=== PATIENT | male | born 1995 | race Caucasian/White ===

== ENCOUNTER 2024-09-19 17:21 | Emergency (ER) | payer SELFPAY ==
--- NOTE | ~2024-09-19 | XR_ITS ---
EXAM: XR finger 2nd LT min 2V DATE: 09/19/2024 17:45 HISTORY: infection . COMPARISON: None available. FINDINGS: Normal mineralization. No fracture or dislocation. No lytic or blastic lesion. Joint space s are maintained. No erosion or periosteal change. Soft tissue swelling over the distal second digit. Punctate radiopacity over the palmar thenar soft tissues. IMPRESSION: No radiographic evidence of osteomyelitis. No subcutaneous gas or foreign body in the second digit. Punctate, likely palmar thenar metallic foreign body, presumably chronic and unrelated to the process in the second digit. Reviewed, dictated and finalized at location [facility]. GER EMPLOYEE RELATIONS IMPRESSION: No radiographic evidence of osteomyelitis. No subcutaneous gas or foreign body in the second digit. Punctate, likely palmar thenar metallic foreign body, presumably chronic and un related to the process in the second digit.
[2024-09-19 17:33] VITALS: BP 158/100; PULSE 83; RESP 19; TEMP 36.7; O2SAT 98
[2024-09-19] MEDS: oxyCODONE/ACETAMINOPHEN (*CRX) 5-325 MG TABLET 1 TABLET PO ×2 (19:32→21:01)
[2024-09-19] MEDS: TETANUS,DIPHTHERIA,AC PERTUSSIS ADULT (0.5 ML) BOOSTRIX IM (19:32)
[2024-09-19 19:56] LABS: Anion Gap 10 mmol/L (4-12); Blood Urea Nitrogen 11 mg/dL (9-20); Calcium 9.7 mg/dL (8.4-10.2); Carbon Dioxide 32 mmol/L (22-30); Chloride 94 mmol/L (98-107); Estimated CRCL calculation 123 ml/min; Estimated Glomerular Filt Rate > 60; Glucose 98 mg/dL (65-110); Potassium 3.7 mmol/L (3.4-5.0); Sodium 136 mmol/L (137-145)
--- NOTE | 2024-09-19 20:42 | ED_ITS ---
HPI - Wound/Laceration General Chief Complaint: Wound/Laceration Stated Complaint: left 2nd finger injury Time Seen by Provider: 09/19/24 18:53 Source: patient Mode of arrival: ambulatory Limitations: no limitations History of Present Illness HPI narrative: This is a 29-year-old male, with no significant past medical history, presenting to the emergency department complaining of painful swelling and drainage from the left index finger for the past 2 days. The patient states he accidentally stabbed himself with a medical [place] cure 2 days ago. He complains of 5/10 dull pain. He denies injury elsewhere. He is not sure of his last tetanus vaccination. He has no other complaints at this time. Related Data Allergies Allergy/AdvReac Type Severity Reaction Status Date / Time No Known Allergies Allergy Unverified 09/19/24 17:25 Review of Systems 2 Review of Systems: All systems reviewed & are unremarkable except as noted in HPI and below PMFSH Past Medical History Medical History No significant past medical history Surgical History Surgical History No significant past surgical history Social History Social History Smoking status: Never smoker Alcohol intake: current Substance use: never Exam 2 Narrative: GENERAL: Well-developed, well-nourished, and in no acute distress. HEAD: Normocephalic, atraumatic. EYES: PERRLA and EOMI. CHEST: Clear to auscultation. No respiratory distress. No wheezes rales or rhonchi HEART: Regular rate and rhythm. No murmur heard. Normal peripheral pulses. EXTREMITIES: there is purulent drainage and gangrenous appearing tissue noted at the distal, palmar aspect of the left index finger with associated erythema noted dorsal aspect of the finger. There is no noted crepitus. Range of motion of the finger is intact. Normal range of motion of all other extremities. No edema. SKIN: Warm, dry, no rash. NEURO: Alert and oriented x3. No focal deficit. Moving all 4 limbs spontaneously PSYCH: Normal mood and affect. Course Course Emergency Course: 20:49 - Exam consistent with felon. X-ray not concerning for retained foreign object, fracture or obvious changes concerning for osteomyelitis. The patient was given tetanus vaccination. The finger was incised and drained. Please see procedure note. Will discharge with oral antibiotics with concern for associated cellulitis. I discussed the findings and recommendations with the patient. Discussed return and emergency precautions including signs/symptoms of antibiotic failure and neurovascular compromise. The patient voiced understanding and agreement with the plan. All questions answered to his satisfaction. Vital Signs Vital signs: Vital Signs Temperature 98.1 F 09/19/24 17:33 Pulse Rate 83 09/19/24 17:33 Respiratory Rate 19 09/19/24 17:33 Blood Pressure 158/100 H 09/19/24 17:33 Pulse Oximetry 98 09/19/24 17:33 Temperature 98.1 F 09/19/24 17:33 Pulse Rate 83 09/19/24 17:33 Respiratory Rate 19 09/19/24 17:33 Blood Pressure 158/100 H 09/19/24 17:33 Pulse Oximetry 98 09/19/24 17:33 Procedures Abscess I/D hand: Date of Incision: 09/19/24 Time of Incision: 20:35 Side (if applicable): left Sedation/analgesia: none Local Anesthetic: lidocaine 1% Amount of anesthesia used (mL): 8 Technique: incised with #11 blade ( Made at the ulnar aspect the distal left index finger) Amount of fluid expressed (mL): 3 Irrigation: Yes Packing used?: none I&D Results: Pus and Blood Complications: other (None) Abcess I&D Additional Comments: Felon of the left index finger incised and drained. Bleeding was controlled with a ring tourniquet applied to the left index finger. MDM - Wound/Laceration MDM Narrative Medical decision making narrative: Plan: Imaging, pain controlled on a tetanus vaccination, incision and drainage Differential Diagnosis Differential diagnosis: Likely abscess and other (felon, osteomyelitis, cellulitis, retained foreign object, other) Lab Data 09/19/24 19:40 Labs: Lab Results 09/19/24 Range/Units 19:40 Sodium 136 L (137-145) mmol/L Potassium 3.7 (3.4-5.0) mmol/L Chloride 94 L (98-107) mmol/L Carbon Dioxide 32 H (22-30) mmol/L Anion Gap 10 (4-12) mmol/L BUN 11 (9-20) mg/dL Creatinine 0.88 (0.7-1.3) mg/dL Estim Creat Clear Calc 123 ml/min Estimated GFR > 60 (59 - ) Glucose 98 (65-110) mg/dL Calcium 9.7 (8.4-10.2) mg/dL Discharge Plan Discharge Clinical Impression: Felon of finger of left hand, Finger pain, left Patient Disposition: Home, Self-Care Condition: Stable Instructions: Antibiotic Form, Abscess (ED) Additional Instructions: You were seen in the emergency department. X-rays are not concerning for infection of the bone or other fracture. Your labs are not concerning for kidney injury. The abscess of the finger was trained in your given a tetanus vaccination. I recommend a course of oral antibiotics, pain medications and follow-up with a primary care doctor in 3-5 days for wound re-evaluation. If you develop rapidly spreading redness with severe pain, fevers, vomiting, or if you have other emergent concerns for life, limb, or eyesight, return to the emergency department. Patient Language: Mongolian Prescriptions: New sulfamethoxazole-trimethoprim 800-160 mg tablet 1 tablet PO Q12H 7 Days Qty: 14 0RF hydrocodone-acetaminophen 5-325 mg tablet 1 tablet PO Q12H PRN (Reason: pain, severe) 4 Days Qty: 8 0RF Follow-up/Referrals: PHYSICIAN,EMAIL PRODUCTION SPECIALIST [Primary Care Provider] - Estephania Reese DO [Physician] - 09/22/24 Time of Disposition: 20:47
[2024-09-19] MEDS: SULFAMETHOXAZOLE/TRIMETHOPRIM 800/160 MG DS TABLET 1 TAB PO (21:01)
--- OUTSIDE RECORDS SUMMARY | 2024-09-24 09:20 | XMS_ITS | Clinical Summary ---
Author Organization [facility] Address [address] [place] [address] Care Team Providers Care Screw Down Name Role Phone Chepe Guardado MD Primary Care Provider [phone] Allergies No known active allergies Medications No known medications Active Problems Patient Care Coordination No te Formatting of this note migh t be different from the original. AWV 03/20/2016, 01/02/2018 Problem Noted Date Diagnosed Date Tobacco use 04/12/2014 Anxiety state 07/10/2011 Insomnia 07/10/2011 Allergic rhinitis 07/10/2011 Obesity 07/10/2011 Resolved Problems Problem Noted Date Diagnosed Date Resolved Date Abdominal pain, generalized 04/02/2012 03/20/2016 Overview (04/02/2012): 04/02/12 spoke with grandmother->sxs reportedly improved after laxative use Elevated blood pressure (not hypertension) 07/10/2011 04/12/2014 Family History Relation Name Status Comments Father Alive Mother Alive Social History Tobacco Use Types Packs/Day Years Used Date Smoking Tobacco: Every Day Cigarettes 1 1 Smokeless Tobacco: Never Tobacco Cessation:Counseling Given: No Alcohol Use Standard Drinks/Week Comments No 0 (1 standard drink = 0.6 oz pur e alcohol) Sex and Gender Information Value Date Recorded Sex Assigned at Not on file 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 Gender Identity Not on file Sexual Orientation Not on file Last Filed Vital Signs Vital Sign Reading Time Taken Comments Blood Pressure 130/88 01/02/2018 10:26 AM CDT Pulse - - Temperature 36.7 ??C (98.1 ??F) 04/12/2014 12:17 PM C DT Respiratory Rate - - Oxygen Saturation - - Inhaled Oxygen Concentration - - Weight 100.2 kg (221 lb) 01/02/2018 10:26 AM CDT Height 188 cm (6' 2 ) 01/02/2018 10:26 AM CDT Body Mass Index 28.37 01/02/2018 10:26 AM CDT Plan of Treatment Health Maintenance Due Date Last Done Comments DTAP/TDAP/TD VACCINES (1 - Tdap) 2014 HEPATITIS B VACCINES (1 of 3 - 19+ 3-dose series) 2014 INFLUENZA VACCINE (#1) 2024 HPV VACCINES Aged Out No longer eligi ble based on patient's age to complete this topic Insurance Care Teams Screw Down Relationship Specialty [place] [id number] [address] PCP - General Internal Medicine 07/10/11
== END 2024-09-19 21:05 | disposition home or self-care (01) ==
PROVIDERS: Emergency Provider Preventive Medicine Aerospace Medicine
DX: L03.012 Cellulitis of left finger (principal); Z23 Encounter for immunization
CPT/HCPCS: 26010; 36415; 73140; 80048; 90471; 90715; 99283; A9270

== ENCOUNTER 2024-09-22 16:32 | Emergency (ER) | payer SELFPAY ==
--- NOTE | ~2024-09-22 | XR_ITS ---
HISTORY: infection 2ND DIGIT COMPARISON: 09/19/2024 TECHNIQUE: 3 views of the left second digit were performed FINDINGS: No acute fracture. Interval development of multiple punctate foci of air within the soft tissues of the distal margin of the left second digit, an interval change from prior. Joint spaces are preserved and alignment is normal. Soft tissues are without foreign body or significant calcification. Normal mineralization. IMPRESSION: Gas within the soft tissues overlying the distal phalanx of the second digit. No bony abnormality. Reviewed, dictated and finalized at location [facility]. NARY CARE UNIT NURSE IMPRESSION: Gas within the soft tissues overlying the distal phalanx of the se cond digit. No bony abnormality.
[2024-09-22 16:38] VITALS: BP 150/112; PULSE 84; RESP 20; TEMP 36.6; O2SAT 99
--- NOTE | 2024-09-22 17:42 | ED.WOUNDLAC ---
HPI - Wound/Laceration General Chief Complaint: Wound/Laceration <Caitie Brown PA-C - Last Filed: 09/22/24 21:32> Stated Complaint: finger wound <TORY Maurer Last Filed: 09/22/24 21:32> Time Seen by Provider: 09/22/24 17:15 <TORY Maurer Last Filed: 09/22/24 21:32> Source: patient <TORY Maurer Last Filed: 09/22/24 21:32> Mode of arrival: ambulatory <TORY Maurer Last Filed: 09/22/24 21:32> Limitations: no limitations <TORY Maurer Last Filed: 09/22/24 21:32> History of Present Illness HPI narrative: This is a 29 year old male that presents to the ER for wound to the left 2nd finger. Reports he accidentally stabbed his finger with a skewer for kabobs. He was seen in the ER here and had a wound to the end of the finger incised and drained. He was not able to poultry picker his antibiotics till today. His finger has continued to get more swollen, with foul-smelling drainage. Denies fevers. <Caitie Brown PA-C - Last Filed: 09/22/24 21:32> Related Data Allergies/Adverse Reactions: Allergies Allergy/AdvReac Type Severity Reaction Status Date / Time No Known Allergies Allergy Verified 09/22/24 18:37 <TORY Maurer Last Filed: 09/22/24 21:32> Review of Systems Review of Systems: CONSTITUTIONAL: Denies fever SKIN: Reports redness, drainage MUSCULOSKELETAL: Reports joint pain, and myalgia. NEUROLOGIC: Denies numbness <TORY Maurer Last Filed: 09/22/24 21:32> All systems reviewed & are unremarkable except as noted in HPI and below <TORY Maurer Last Filed: 09/22/24 21:32> [facility] Past Medical History Medical History: Medical History No significant past medical history <Caitie Brown PA-C - Last Filed: 09/22/24 21:32> Surgical History Surgical History: Surgical History No significant past surgical history <Caitie Brown PA-C - Last Filed: 09/22/24 21:32> Social History Social History: Social History Smoking status: Never smoker Alcohol intake: current Substance use: never <Caitie Brown PA-C - Last Filed: 09/22/24 21:32> Exam Narrative: GENERAL: Well-appearing, well-nourished, and in no acute distress. HEAD: Normocephalic, atraumatic. EYES: EOMI. EXTREMITIES: Markedly decreased ROM in the left 2nd finger DIP joint with redness and swelling. Purulent drainage from a large wound at the tip of the finger with area of necrosis SKIN: Warm, dry, no rash. NEURO: No focal deficits. Alert and oriented x3. PSYCH: Normal mood and affect <Caitie Brown PA-C - Last Filed: 09/22/24 21:32> Course Course Emergency Course: Patient was updated on his workup and recommendation for transfer due to not having availability of Hand surgery for evaluation here <Caitie Brown PA-C - Last Filed: 09/22/24 21:32> ROLLOFF TRUCK DRIVER/PA Physician Supervision For this patient encounter, I reviewed the ROLLOFF TRUCK DRIVER or PA documentation, treatment plan, and medical decision making and had [id number] time with this patient. I performed all aspects of the MDM as documented. <Vandana Mckinney MD - Last Filed: 09/23/24 02:16> Consultations Consultation #1: Spoke with Dr. Durbin, plastic surgery with [facility], recommends transfer to [place] and they can send a hand surgeon there for evaluation as [facility] is on time critical <Caitie Brown PA-C - Last Filed: 09/22/24 21:32> Date: 09/22/24 <Caitie Brown PA-C - Last Filed: 09/22/24 21:32> Consultation #2: Dr. Morrissey, ER doctor at [facility] [place] accepts patient as transfer <Caitie Brown PA-C - Last Filed: 09/22/24 21:32> Date: 09/22/24 <Caitie Brown PA-C - Last Filed: 09/22/24 21:32> Vital Signs Vital signs: Vital Signs Temperature 98 F 09/22/24 16:38 Pulse Rate 84 09/22/24 16:38 Respiratory Rate 20 09/22/24 16:38 Blood Pressure 150/112 H 09/22/24 16:38 Pulse Oximetry 99 09/22/24 16:38 Oxygen Delivery Room Air 09/22/24 16:38 Temperature 98 F 09/22/24 16:38 Pulse Rate 73 09/22/24 20:32 Respiratory Rate 18 09/22/24 20:32 Blood Pressure 147/90 H 09/22/24 20:32 Pulse Oximetry 100 09/22/24 20:32 Oxygen Delivery Room Air 09/22/24 16:38 <Caitie Brown PA-C - Last Filed: 09/22/24 21:32> Vital Signs Temperature 98 F 09/22/24 16:38 Pulse Rate 84 09/22/24 16:38 Respiratory Rate 20 09/22/24 16:38 Blood Pressure 150/112 H 09/22/24 16:38 Pulse Oximetry 99 09/22/24 16:38 Oxygen Delivery Room Air 09/22/24 16:38 Temperature 98 F 09/22/24 16:38 Pulse Rate 73 09/22/24 20:32 Respiratory Rate 18 09/22/24 20:32 Blood Pressure 147/90 H 09/22/24 20:32 Pulse Oximetry 100 09/22/24 20:32 Oxygen Delivery Room Air 09/22/24 16:38 <Vandana Mckinney MD - Last Filed: 09/23/24 02:16> MDM - Wound/Laceration MDM Narrative Medical decision making narrative: Patient presents to the emergency department for abscess to the left 2nd finger. This was previously drained. Patient did not poultry picker his oral antibiotics. Came in tonight for worsening infection. Large abscess to the left 2nd finger distal phalanx. Patient has redness and swelling extending into the finger. Decreased active range of motion in the DIP joint. He is afebrile and nontoxic appearing. Cbc without leukocytosis. Inflammatory markers are elevated. Finger x-ray shows gas within the soft tissues overlying the distal phalanx. No osseous abnormality. Patient was updated on his workup and recommendation for transfer due to not having availability of Hand surgery for evaluation here. Spoke with Dr. Durbin, plastic surgery with [facility], recommends transfer to [place] and they can send a hand surgeon there for evaluation as [facility] is on time critical. Dr. Morrissey, ER doctor at [place] accepts patient as transfer <Caitie Brown PA-C - Last Filed: 09/22/24 21:32> Patient presents to the emergency department for abscess to the left 2nd finger. This was previously drained. Patient did not poultry picker his oral antibiotics. Came in tonight for worsening infection. Large abscess to the left 2nd finger distal phalanx. Patient has redness and swelling extending into the finger. Decreased active range of motion in the DIP joint. He is afebrile and nontoxic appearing. Cbc without leukocytosis. Inflammatory markers are elevated. Finger x-ray shows gas within the soft tissues overlying the distal phalanx. No osseous abnormality. Patient was updated on his workup and recommendation for transfer due to not having availability of Hand surgery for evaluation here. Spoke with Dr. Durbin, plastic surgery with [facility], recommends transfer to [place] and they can send a hand surgeon there for evaluation as [facility] is on time critical. Dr. Morrissey, ER doctor at [place] accepts patient as transfer. <Vandana Mckinney MD - Last Filed: 09/23/24 02:16> Differential Diagnosis Differential diagnosis: Likely abscess and other (cellulitis) <Caitie Brown PA-C - Last Filed: 09/22/24 21:32> Lab Data Attestation: I reviewed the patient's lab results. <Caitie Brown PA-C - Last Filed: 09/22/24 21:32> Result diagrams: 09/22/24 17:48 09/22/24 17:48 <Caitie Brown PA-C - Last Filed: 09/22/24 21:32> Labs: Lab Results 09/22/24 Range/Units 17:48 WBC 7.3 (4.5-10.0) K/mm3 RBC 4.92 (4.6-6.20) M/mm3 Hgb 15.7 (14.0-18.0) g/dL Hct 43.8 (42.0-52.0) % MCV 89.0 (80-100) fl MCH 31.9 (26-34) pg MCHC 35.8 (32-36) g/dl RDW 11.9 (11.5-14.5) % Plt Count 315 (150-375) k/mm3 MPV 9.5 (7.4-10.4) fl Immature Gran % (Auto) 0.3 (0-0.5) % Neut % (Auto) 57.8 (45.5-73.1) % Lymph % (Auto) 31.9 (18.3-44.2) % [place] % (Auto) 7.4 (2.6-8.5) % Eos % (Auto) 1.8 (0-4.4) % Baso % (Auto) 0.8 (0.2-1.2) % Lymph # (Auto) 2.34 (0.9-3.2) K/mm3 [place] # (Auto) 0.5 (0.1-0.6) K/mm3 Eos # (Auto) 0.1 (0-0.3) K/mm3 Baso # (Auto) 0.1 (0.0-0.1) K/mm3 Abs Immat Gran (auto) 0.02 (0.00-0.031) K/mm3 Absolute Neuts (auto) 4.2 (1.3-6.7) K/mm3 Absolute Nucleated RBC 0.000 (0.0-0.012) K/mm3 Nucleated RBC % 0.0 (0.0-0.2) % Atypical Lymphocytes Present Platelet Estimate Adequate (Adequate) Schistocytes None seen ESR 24 H (0-20) mm/hr Sodium 138 (137-145) mmol/L Potassium 4.1 (3.4-5.0) mmol/L Chloride 102 (98-107) mmol/L Carbon Dioxide 28 (22-30) mmol/L Anion Gap 8 (4-12) mmol/L BUN 14 (9-20) mg/dL Creatinine 0.83 (0.7-1.3) mg/dL Estim Creat Clear Calc 133 ml/min Estimated GFR > 60 (59 - ) Glucose 104 (65-110) mg/dL Lactic Acid 1.6 (0.7-2.0) mmol/L Calcium 9.2 (8.4-10.2) mg/dL C-Reactive Protein 2.4 H (<1.0) mg/dL <Caitie Brown PA-C - Last Filed: 09/22/24 21:32> Lab Results 09/22/24 Range/Units 17:48 WBC 7.3 (4.5-10.0) K/mm3 RBC 4.92 (4.6-6.20) M/mm3 Hgb 15.7 (14.0-18.0) g/dL Hct 43.8 (42.0-52.0) % MCV 89.0 (80-100) fl MCH 31.9 (26-34) pg MCHC 35.8 (32-36) g/dl RDW 11.9 (11.5-14.5) % Plt Count 315 (150-375) k/mm3 MPV 9.5 (7.4-10.4) fl Immature Gran % (Auto) 0.3 (0-0.5) % Neut % (Auto) 57.8 (45.5-73.1) % Lymph % (Auto) 31.9 (18.3-44.2) % [place] % (Auto) 7.4 (2.6-8.5) % Eos % (Auto) 1.8 (0-4.4) % Baso % (Auto) 0.8 (0.2-1.2) % Lymph # (Auto) 2.34 (0.9-3.2) K/mm3 [place] # (Auto) 0.5 (0.1-0.6) K/mm3 Eos # (Auto) 0.1 (0-0.3) K/mm3 Baso # (Auto) 0.1 (0.0-0.1) K/mm3 Abs Immat Gran (auto) 0.02 (0.00-0.031) K/mm3 Absolute Neuts (auto) 4.2 (1.3-6.7) K/mm3 Absolute Nucleated RBC 0.000 (0.0-0.012) K/mm3 Nucleated RBC % 0.0 (0.0-0.2) % Atypical Lymphocytes Present Platelet Estimate Adequate (Adequate) Schistocytes None seen ESR 24 H (0-20) mm/hr Sodium 138 (137-145) mmol/L Potassium 4.1 (3.4-5.0) mmol/L Chloride 102 (98-107) mmol/L Carbon Dioxide 28 (22-30) mmol/L Anion Gap 8 (4-12) mmol/L BUN 14 (9-20) mg/dL Creatinine 0.83 (0.7-1.3) mg/dL Estim Creat Clear Calc 133 ml/min Estimated GFR > 60 (59 - ) Glucose 104 (65-110) mg/dL Lactic Acid 1.6 (0.7-2.0) mmol/L Calcium 9.2 (8.4-10.2) mg/dL C-Reactive Protein 2.4 H (<1.0) mg/dL <Vandana Mckinney MD - Last Filed: 09/23/24 02:16> Imaging Data Radiologist's impression: ITS Impressions Finger X-Ray 09/22/24 18:32 IMPRESSION: Gas within the soft tissues overlying the distal phalanx of the second digit. No bony abnormality. <Caitie Brown PA-C - Last Filed: 09/22/24 21:32> Critical Care Time Critical Care Time Critical Care Time: No <Caitie Brown PA-C - Last Filed: 09/22/24 21:32> Discharge Plan Discharge Clinical Impression: Abscess <Caitie Brown PA-C - Last Filed: 09/22/24 21:32> Patient Disposition: Acute Care Hospital <Caitie Brown PA-C - Last Filed: 09/22/24 21:32> Condition: Stable <TORY Maurer Last Filed: 09/22/24 21:32> Additional Instructions: You were accepted as transfer to [place] ER to be evaluated by hand surgery. You were given a dose of Vancomycin in the ER here Report directly to [facility]. Do not eat or drink. <Caitie Brown PA-C - Last Filed: 09/22/24 21:32> Patient Language: Chinese <Caitie Brown PA-C - Last Filed: 09/22/24 21:32> Prescriptions: No Action sulfamethoxazole-trimethoprim 800-160 mg tablet 1 tablet PO Q12H 7 Days Qty: 14 0RF hydrocodone-acetaminophen 5-325 mg tablet 1 tablet PO Q12H PRN (Reason: pain, severe) 4 Days Qty: 8 0RF <Caitie Brown PA-C - Last Filed: 09/22/24 21:32> Follow-up/Referrals: PHYSICIAN,SILK SCREEN REPAIRER [Primary Care Provider] - <Caitie Brown PA-C - Last Filed: 09/22/24 21:32>
[2024-09-22 17:58] LABS: Basophils Absolute Auto 0.1 K/mm3 (0.0-0.1); Basophils Percent Auto 0.8 % (0.2-1.2); Eosinophils Absolute Auto 0.1 K/mm3 (0-0.3); Eosinophils Percent Auto 1.8 % (0-4.4); Hematocrit 43.8 % (42.0-52.0); Hemoglobin 15.7 g/dL (14.0-18.0); Immature Granulocyte Absolute 0.02 K/mm3 (0.00-0.031); Immature Granulocyte Percent A 0.3 % (0-0.5); Lymphocytes Absolute Auto 2.34 K/mm3 (0.9-3.2); Lymphocytes Percent Auto 31.9 % (18.3-44.2); Mean Corpuscular HGB Conc 35.8 g/dl (32-36); Mean Corpuscular Hemoglobin 31.9 pg (26-34); Mean Platelet Volume 9.5 fl (7.4-10.4); Monocytes Absolute Auto 0.5 K/mm3 (0.1-0.6); Monocytes Percent Auto 7.4 % (2.6-8.5); Neutrophils Absolute Auto 4.2 K/mm3 (1.3-6.7); Neutrophils Percent Auto 57.8 % (45.5-73.1); Platelet Count Result 315 k/mm3 (150-375); Red Blood Count 4.92 M/mm3 (4.6-6.20); Red Cell Distribution Width 11.9 % (11.5-14.5); White Blood Count 7.3 K/mm3 (4.5-10.0)
[2024-09-22 18:08] LABS: Lactic Acid Reflex 1.6 mmol/L (0.7-2.0)
[2024-09-22 18:10] LABS: Anion Gap 8 mmol/L (4-12); Blood Urea Nitrogen 14 mg/dL (9-20); CRP 2.4 mg/dL (<1.0); Calcium 9.2 mg/dL (8.4-10.2); Carbon Dioxide 28 mmol/L (22-30); Chloride 102 mmol/L (98-107); Estimated CRCL calculation 133 ml/min; Estimated Glomerular Filt Rate > 60; Glucose 104 mg/dL (65-110); Potassium 4.1 mmol/L (3.4-5.0); Sodium 138 mmol/L (137-145)
[2024-09-22 18:11] LABS: Atypical Lymphocytes Present; Platelet Estimate Adequate (Adequate); Schistocytes None Seen
[2024-09-22 18:25] LABS: Erythrocyte Sedimentation Rate 24 mm/hr (0-20)
[2024-09-22] MEDS: VANCOMYCIN 1,500 MG/NS 500 ML 1,500 MG/500 ML BAG 250 MG IVPB (18:37)
[2024-09-22 18:46] VITALS: BP 156/101; PULSE 79; RESP 18; O2SAT 100
[2024-09-22] MEDS: LORazepam (*CRX) 0.5 MG TABLET PO (18:51)
[2024-09-22 19:46] VITALS: BP 137/78; PULSE 64; RESP 15; O2SAT 100
[2024-09-22 20:32] VITALS: BP 147/90; PULSE 73; RESP 18; O2SAT 100
--- NOTE | 2024-09-22 22:31 | PC.NURSE ---
pt and family member offered ambulance transport to [facility] but turned it down to go by POV. iv removed. patient educated to not have any food or drink on the way to the hospital.
--- OUTSIDE RECORDS SUMMARY | 2024-09-24 20:04 | XMS_ITS | Clinical Summary ---
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
== END 2024-09-22 23:21 | disposition short-term general hospital (02) ==
PROVIDERS: Emergency Provider Physician Assistant
DX: L02.512 Cutaneous abscess of left hand (principal); W26.8XXD Contact with other sharp object(s), not elsewhere classified, subsequent encounter
CPT/HCPCS: 36415; 73140; 80048; 83605; 85025; 85652; 86140; 87040; 87070; 87075; 87205; 96365; 96366; 96375; 99284; A9270; J3370

== ENCOUNTER 2025-03-30 14:57 | Emergency (ER) | payer SELFPAY ==
--- NOTE | 2025-03-30 14:58 | ED.WOUNDLAC ---
HPI - Wound/Laceration General Chief Complaint: Wound/Laceration Stated Complaint: Cut Finger Source: patient and RN notes reviewed Mode of arrival: ambulatory Limitations: no limitations History of Present Illness HPI narrative: 29-year-old male presents with concern for laceration to the 2nd digit of the left hand. He reports he smashed the finger just prior to arrival. He is up-to-date on his tetanus vaccination. He denies decreased sensation, strength, range of motion finger. 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 Related Data Allergies Allergy/AdvReac Type Severity Reaction Status Date / Time No Known Allergies Allergy Verified 03/30/25 15:01 Review of Systems Review of Systems: CONSTITUTIONAL: Denies malaise, chills, sweats, or fever. SKIN: Reports laceration the dorsal aspect of the 2nd digit of the left hand MUSCULOSKELETAL: Denies muscle skeletal pain NEUROLOGIC: Denies numbness, weakness All systems reviewed & are unremarkable except as noted in HPI and below PMFSH Past Medical History Medical History No significant past medical history Surgical History Surgical History No significant past surgical history Social History Social History Smoking status: Never smoker Alcohol intake: current Substance use: never Comments At time of signature, agree with nursing past medical, surgical, social and family history. There is no relevant family history pertinent to the presenting complaint Exam Narrative: GENERAL: Well-appearing, well-nourished, and in no acute distress. HEAD: Normocephalic EYES: PERRLA, conjunctivae clear NECK: Supple. CHEST: Speaks in full sentences. No respiratory distress. HEART: Regular rate and rhythm. Normal and equal peripheral pulses. EXTREMITIES: 2nd digit left hand has sling normal strength and sensation. 5/5 strength with digit flexion, extension. Range of motion baseline. No clubbing, cyanosis, or edema noted. No musculoskeletal tenderness. Normal digital cascade with flexion of fingers, median, ulnar and radial nerve intact. Baseline sensation of each side of finger. No scissoring. Normal thumb opposition. Good capillary refill and radial pulse. Distal capillary refill less than 3 seconds. SKIN: Warn, dry, intact, pink. 0.5 cm laceration into subcutaneous tissue noted to the dorsal aspect of the 2nd digit of the left hand at the MIP joint NEURO: Alert and oriented x3. PSYCH: Normal mood and affect Course Course Emergency Course: Patient is aware of diagnosis, understands and agrees to treatment plan. Anticipatory guidance given. Patient agrees to follow-up as directed and is aware of reasons to seek care at the emergency department. Portions of this record may have been created with voice recognition software Level of Care: Express Care Visit Vital Signs Vital signs: Vital Signs Temperature 96.7 F L 03/30/25 15:08 Pulse Rate 92 03/30/25 15:08 Respiratory Rate 16 03/30/25 15:08 Blood Pressure 117/79 03/30/25 15:08 Pulse Oximetry 100 03/30/25 15:08 Temperature 96.7 F L 03/30/25 15:08 Pulse Rate 92 03/30/25 15:08 Respiratory Rate 16 03/30/25 15:08 Blood Pressure 117/79 03/30/25 15:08 Pulse Oximetry 100 03/30/25 15:08 Reviewed. Procedures Laceration Laceration 1: Date: 03/30/25 Time: 15:14 Site: hand Side (If applicable): left Size (cm): 2.5 Description: irregular Depth: simple, single layer Local Anesthetic: lidocaine 1% Amount of anesthesia used (mL): 3 Pre-repair: wound explored and irrigated extensively ====== Skin Level ====== Skin layer closed with: nylon Size (cm): 4-0 Number of sutures: 6 Technique: simple, interrupted ====== Subcutaneous Layer ====== ====== Muscle Layer ====== ====== Tendon Layer ====== MDM - Wound/Laceration MDM Narrative Medical decision making narrative: Wound explored for foreign body and copious irrigation provided with no evidence of FB. Discussed the potential of retained foreign body with the patient and signs/symptoms that should prompt the patient to immediately go to the ED for reevaluation. There was no evidence of tendon or nerve lacerations. A sterile dressing was then applied and anticipatory guidance was provided. Tetanus prophylaxis was not given Differential Diagnosis Differential diagnosis: Likely laceration, abrasion and avulsion of skin Critical Care Time Critical Care Time Critical Care Time: No Discharge Plan Discharge Clinical Impression: Laceration Patient Disposition: Home Condition: Stable Instructions: Finger Laceration (ED) Additional Instructions: Keep wound clean, and dry. Apply antibiotic ointment twice daily. Cover with bandage as needed to prevent contamination. Clean with soap and water twice daily, but do not soak, take baths, or swim until wound is completely healed. Do not clean with hydrogen peroxide. If any signs of infection such as redness, swelling, increasing pain, drainage of purulent discharge, streaks up your extremity develop, seek medical attention immediately. Followup with your primary care provider in 10 days for suture removal. After sutures are removed, keep your scar out of the sun. You may use OTC silicone pad and/or scar massage with ointment (for 10-15 min a day) after one month. Talk to your doctor if you think you are developing a keloid. Patient Language: [place] Citizen Follow-up/Referrals: UNKNOWN,DOCTOR [Non-Staff] - Stand Alone Forms: Work/School Release IP Time of Disposition: 15:15
[2025-03-30 15:08] VITALS: BP 117/79; PULSE 92; RESP 16; TEMP 35.9; O2SAT 100
== END 2025-03-30 15:35 | disposition home or self-care (01) ==
PROVIDERS: Emergency Provider Nurse Practitioner
DX: S61.211A Laceration without foreign body of left index finger without damage to nail, initial encounter (principal); X58.XXXA Exposure to other specified factors, initial encounter
CPT/HCPCS: 12001; 99212; G0463; J2003